=== PATIENT | male | born 1955 | race Caucasian/White ===

== ENCOUNTER 2022-06-14 12:26 | Inpatient (IN) | payer OTHER, MEDICAID ==
[~2022-06-14] VITALS: Ht 182.9 cm; Wt 98.4 kg
[~2022-06-14 12:26] MED LIST: ASPI-1393 PO; LOSA25TA3 PO; SIMV-343 PO
[2022-06-14 12:37] VITALS: BP_SYST 139
[2022-06-14 14:05] LABS: BASOPHILS # (AUTO) 0.1 K/uL (0.0-0.2); BASOPHILS % (AUTO) 0.4 % (0.0-2.0); HEMATOCRIT 37.3 % (36-54); HEMOGLOBIN 12.8 g/dL (14.0-18.0); LYMPHOCYTES # (AUTO) 0.7 K/uL (1.0-5.5); LYMPHOCYTES % (AUTO) 4.3 % (20.5-51.5); MEAN CORPUSCULAR HEMOGLOBIN 33 pg (27-31); MEAN CORPUSCULAR HGB CONC 34 % (32-36); MEAN CORPUSCULAR VOLUME 96 fL (79.0-98.0); MONOCYTES # (AUTO) 0.6 K/uL (0.0-1.0); MONOCYTES % (AUTO) 4.2 % (1.7-9.3); NEUTROPHILS # (AUTO) 13.9 K/uL (1.8-7.7); NEUTROPHILS % (AUTO) 91.1 % (40.0-70.0); RED BLOOD CELL COUNT(AUTO) 3.91 MIL/uL (4.2-6.2); RED CELL DISTRIBUTION WIDTH 15.4 % (9.0-15.0); WHITE BLOOD COUNT (AUTO) 15.3 K/uL (4.8-10.8)
[2022-06-14 14:13] LABS: CALCIUM 8.4 mg/dL (8.4-11.0); CREATININE 1.12 mg/dL (0.55-1.30)
[2022-06-14 14:18] LABS: ALBUMIN 2.6 g/dL (3.4-4.8); PLATELET COUNT (AUTO) 80 K/uL (130-430); TOTAL BILIRUBIN 3.6 mg/dL (0.0-1.0)
[2022-06-14] MEDS ORDERED: METF-379 PO (15:13)
[2022-06-14] MEDS ORDERED: NACL 0.9% 1,000 ML IV ONE ×2 (15:15)
[2022-06-14 16:10] LABS: CLARITY/URINE CLEAR (CLEAR)
[2022-06-14 16:11] LABS: COLOR,URINE ORANGE (YELLOW)
[2022-06-14 16:16] LABS: BACTERIA,URINE None Seen /HPF (None Seen); WBC,URINE 0-3 /HPF (0-3)
[2022-06-14 16:17] LABS: MUCUS,URINE 2+ /LPF (None Seen)
[2022-06-14] MEDS ORDERED: PIPERACILLIN/TAZO 3.375 GM in NS 50 ML IV ONE (17:45)
[2022-06-14] MEDS ORDERED: VANCOMYCIN HCL 1,000 MG in NS 250 ML IV ONE (17:45)
[2022-06-14] MEDS ORDERED: D5/0.45 NS 1,000 ML IV ONE (18:15)
[2022-06-14] MEDS ORDERED: PIPERACILLIN/TAZOBACTAM 3.375 GM/VIAL (ZOSYN) IV ONE (20:30)
[2022-06-14 21:31] VITALS: BP_SYST 124
[2022-06-14] MEDS ORDERED: VANCOMYCIN HCL 1000 MG/VIAL IV ONE (23:25)
[2022-06-15] VITALS (9 sets, daily range): BP systolic 102–135
[2022-06-15] MEDS ORDERED: LOSARTAN POTASSIUM 25 MG TABLET PO ONE (11:00)
[2022-06-15] MEDS ORDERED: metFORMIN HCL 500 MG TABLET PO ONE (11:00)
[2022-06-15] MEDS ORDERED: NALOXONE HCL 0.4 MG/ML AMP (NARCAN) IVP PRN ×2 (11:00)
[2022-06-15] MEDS ORDERED: LORazepam 2 MG/ML VIAL IVP PRN (11:00)
[2022-06-15] MEDS ORDERED: INSULIN REGULAR, HUMAN 100 UNITS/ML, 3 ML VIAL (humuLIN R) SUBCUT PRN (11:00)
[2022-06-15] MEDS ORDERED: ACETAMINOPHEN 325 MG TABLET PO PRN (11:00)
[2022-06-15] MEDS ORDERED: ASPIRIN 81 MG TABLET(ECOTRIN) PO ONE (11:00)
[2022-06-15] MEDS ORDERED: HYDROcodone/ACETAMIN 5-325 MG TAB (NORCO/ VICODIN) PO PRN (11:00)
[2022-06-15] MEDS ORDERED: ONDANSETRON HCL 4 MG/2 ML VIAL IVP PRN (11:00)
[2022-06-15] MEDS ORDERED: HYDROcodone/ACETAMIN 10-325 MG TAB PO PRN (11:00)
[2022-06-15] MEDS: PIPERACILLIN/TAZO 3.375/DEX-IS 50 ML IV SCH ×2 (12:24→17:54)
[2022-06-15] MEDS: NORMAL SALINE 5 ML DISP.SYRIN IVF SCH ×4 (16:30→22:28)
[2022-06-15] MEDS: SIMVASTATIN 20 MG TABLET PO SCH (17:54)
[2022-06-15] MEDS: ACETAMINOPHEN 325 MG TABLET PO PRN (22:28)
[2022-06-16] VITALS (9 sets, daily range): BP systolic 98–131
[2022-06-16] MEDS: PIPERACILLIN/TAZO 3.375/DEX-IS 50 ML IV SCH ×5 (00:43→23:51)
[2022-06-16] MEDS: NORMAL SALINE 5 ML DISP.SYRIN IVF SCH ×6 (06:00→22:38)
[2022-06-16] MEDS: metFORMIN HCL 500 MG TABLET PO SCH (08:32)
[2022-06-16] MEDS: ASPIRIN 81 MG TABLET(ECOTRIN) PO SCH (08:32)
[2022-06-16] MEDS: LOSARTAN POTASSIUM 25 MG TABLET PO SCH (08:32)
[2022-06-16] MEDS: SIMVASTATIN 20 MG TABLET PO SCH (17:53)
[2022-06-16] MEDS ORDERED: LOPERAMIDE HCL 2 MG CAPSULE PO PRN (23:45)
[2022-06-16] MEDS: ACETAMINOPHEN 325 MG TABLET PO PRN (23:51)
[2022-06-17] VITALS (10 sets, daily range): BP systolic 115–162
[2022-06-17] MEDS: NORMAL SALINE 5 ML DISP.SYRIN IVF SCH ×6 (06:00→22:16)
[2022-06-17 06:28] LABS: BASOPHILS % (AUTO) 0.9 % (0.0-2.0); EOSINOPHILS # (AUTO) 0.5 K/uL (0.0-0.4); EOSINOPHILS % (AUTO) 9.4 % (0.0-4.0); HEMATOCRIT 32.1 % (36-54); HEMOGLOBIN 11.1 g/dL (14.0-18.0); LYMPHOCYTES # (AUTO) 1.8 K/uL (1.0-5.5); LYMPHOCYTES % (AUTO) 33.4 % (20.5-51.5); MEAN CORPUSCULAR HEMOGLOBIN 33 pg (27-31); MEAN CORPUSCULAR HGB CONC 35 % (32-36); MEAN CORPUSCULAR VOLUME 95 fL (79.0-98.0); MONOCYTES # (AUTO) 0.3 K/uL (0.0-1.0); MONOCYTES % (AUTO) 5.9 % (1.7-9.3); NEUTROPHILS # (AUTO) 2.7 K/uL (1.8-7.7); NEUTROPHILS % (AUTO) 50.4 % (40.0-70.0); PLATELET COUNT (AUTO) 73 K/uL (130-430); RED BLOOD CELL COUNT(AUTO) 3.39 MIL/uL (4.2-6.2); RED CELL DISTRIBUTION WIDTH 15.2 % (9.0-15.0); WHITE BLOOD COUNT (AUTO) 5.4 K/uL (4.8-10.8)
[2022-06-17] MEDS: PIPERACILLIN/TAZO 3.375/DEX-IS 50 ML IV SCH (06:42)
[2022-06-17 07:01] LABS: ALBUMIN 2.1 g/dL (3.4-4.8); C-REACTIVE PROTEIN QUANT 5.2 mg/dL (0-0.5); CREATININE 0.81 mg/dL (0.55-1.30); TOTAL BILIRUBIN 1.5 mg/dL (0.0-1.0)
[2022-06-17] MEDS: metFORMIN HCL 500 MG TABLET PO SCH (09:18)
[2022-06-17] MEDS: ASPIRIN 81 MG TABLET(ECOTRIN) PO SCH (09:19)
[2022-06-17] MEDS: LOSARTAN POTASSIUM 25 MG TABLET PO SCH (09:20)
[2022-06-17] MEDS: ACETAMINOPHEN 325 MG TABLET PO PRN (09:20)
[2022-06-17 10:47] LABS: ERYTHROCYTE SEDIMENTATION RATE 10 MM/HR (0-15)
[2022-06-17] MEDS: cefTRIAXone 1 GM in D5W 50 ML IV SCH (13:48)
[2022-06-17] MEDS: SIMVASTATIN 20 MG TABLET PO SCH (17:49)
[2022-06-18 00:45] VITALS: BP_SYST 107
[2022-06-18] MEDS: NORMAL SALINE 5 ML DISP.SYRIN IVF SCH ×4 (06:00→13:57)
[2022-06-18 06:42] LABS: BASOPHILS # (AUTO) 0.1 K/uL (0.0-0.2); BASOPHILS % (AUTO) 1.1 % (0.0-2.0); EOSINOPHILS # (AUTO) 0.5 K/uL (0.0-0.4); EOSINOPHILS % (AUTO) 11.2 % (0.0-4.0); HEMOGLOBIN 11.4 g/dL (14.0-18.0); LYMPHOCYTES # (AUTO) 1.6 K/uL (1.0-5.5); LYMPHOCYTES % (AUTO) 32.7 % (20.5-51.5); MEAN CORPUSCULAR HEMOGLOBIN 33 pg (27-31); MEAN CORPUSCULAR HGB CONC 35 % (32-36); MEAN CORPUSCULAR VOLUME 95 fL (79.0-98.0); MONOCYTES # (AUTO) 0.3 K/uL (0.0-1.0); NEUTROPHILS # (AUTO) 2.3 K/uL (1.8-7.7); PLATELET COUNT (AUTO) 80 K/uL (130-430); RED BLOOD CELL COUNT(AUTO) 3.49 MIL/uL (4.2-6.2); RED CELL DISTRIBUTION WIDTH 15.1 % (9.0-15.0); WHITE BLOOD COUNT (AUTO) 4.8 K/uL (4.8-10.8)
[2022-06-18 06:59] LABS: C-REACTIVE PROTEIN QUANT 3.5 mg/dL (0-0.5); CALCIUM 7.9 mg/dL (8.4-11.0); CREATININE 0.79 mg/dL (0.55-1.30)
[2022-06-18 08:00] VITALS: BP_SYST 106
[2022-06-18] MEDS: metFORMIN HCL 500 MG TABLET PO SCH ×2 (08:57→09:00)
[2022-06-18] MEDS: LOSARTAN POTASSIUM 25 MG TABLET PO SCH (08:58)
[2022-06-18] MEDS: ASPIRIN 81 MG TABLET(ECOTRIN) PO SCH (08:58)
[2022-06-18 10:33] LABS: ERYTHROCYTE SEDIMENTATION RATE 16 MM/HR (0-15)
[2022-06-18] MEDS: ACETAMINOPHEN 325 MG TABLET PO PRN (10:51)
[2022-06-18 12:00] VITALS: BP_SYST 112
[2022-06-18] MEDS: cefTRIAXone 1 GM in D5W 50 ML IV SCH (12:50)
[2022-06-18 16:00] VITALS: BP_SYST 110
[2022-06-18] MEDS: SIMVASTATIN 20 MG TABLET PO SCH (17:31)
[2022-06-18 20:00] VITALS: BP_SYST 123
[2022-06-19 00:18] VITALS: BP_SYST 111
[2022-06-19] MEDS: NORMAL SALINE 5 ML DISP.SYRIN IVF SCH ×6 (04:25→13:26)
[2022-06-19 06:54] LABS: BASOPHILS # (AUTO) 0.1 K/uL (0.0-0.2); BASOPHILS % (AUTO) 1.1 % (0.0-2.0); EOSINOPHILS # (AUTO) 0.5 K/uL (0.0-0.4); EOSINOPHILS % (AUTO) 11.8 % (0.0-4.0); HEMATOCRIT 31.8 % (36-54); LYMPHOCYTES # (AUTO) 1.4 K/uL (1.0-5.5); LYMPHOCYTES % (AUTO) 31.2 % (20.5-51.5); MEAN CORPUSCULAR HEMOGLOBIN 33 pg (27-31); MEAN CORPUSCULAR HGB CONC 35 % (32-36); MEAN CORPUSCULAR VOLUME 95 fL (79.0-98.0); MONOCYTES # (AUTO) 0.3 K/uL (0.0-1.0); MONOCYTES % (AUTO) 7.6 % (1.7-9.3); NEUTROPHILS # (AUTO) 2.2 K/uL (1.8-7.7); NEUTROPHILS % (AUTO) 48.3 % (40.0-70.0); PLATELET COUNT (AUTO) 74 K/uL (130-430); RED BLOOD CELL COUNT(AUTO) 3.33 MIL/uL (4.2-6.2); WHITE BLOOD COUNT (AUTO) 4.5 K/uL (4.8-10.8)
[2022-06-19 07:51] LABS: ERYTHROCYTE SEDIMENTATION RATE 11 MM/HR (0-15)
[2022-06-19 08:49] LABS: C-REACTIVE PROTEIN QUANT 2.2 mg/dL (0-0.5); CALCIUM 7.9 mg/dL (8.4-11.0); CREATININE 0.7 mg/dL (0.55-1.30); TOTAL BILIRUBIN 0.9 mg/dL (0.0-1.0)
[2022-06-19] MEDS: ASPIRIN 81 MG TABLET(ECOTRIN) PO SCH (09:00)
[2022-06-19] MEDS: metFORMIN HCL 500 MG TABLET PO SCH (09:33)
[2022-06-19] MEDS: LOSARTAN POTASSIUM 25 MG TABLET PO SCH (09:33)
[2022-06-19 09:58] LABS: INR 1.1 (0.80-1.20); PROTHROMBIN TIME 11.7 SECS (9.5-12.5)
[2022-06-19 11:28] VITALS: BP_SYST 109
[2022-06-19] MEDS: cefTRIAXone 1 GM in D5W 50 ML IV SCH (13:25)
[2022-06-19 15:20] VITALS: BP_SYST 114
[2022-06-20 08:06] LABS: AFP, TUMOR MARKER 2.1 ng/mL (0.0-8.4); FERRITIN 107 ng/mL (30-400); HEPATITIS A AB, IgM Negative (Negative); HEPATITIS B CORE AB, IgM Negative (Negative); HEPATITIS B SURFACE AG Negative (Negative)
[2022-06-20 09:07] LABS: ANTI NUCLEAR AB WITH REFLEX Negative (Negative)
[2022-06-23 09:06] LABS: ANTI-SMOOTH MUSCLE AB 6 Units (0-19)
[2022-06-25 12:40] LABS: HEPATITIS C VIRUS AB Negative <0.8 s/co (0.0-0.7)
[2022-06-26] MEDS ORDERED: HYDR-3917 PO (10:23)
== END 2022-06-19 17:00 | disposition home or self-care (01) | DRG 871 ==
LOC: SED 12:26 → STU 18:48 → SMU 06-18 11:59
PROVIDERS: ADMIT Preventive Medicine Preventive Medicine/Occupational Environmental Medicine; ATTEND Preventive Medicine Preventive Medicine/Occupational Environmental Medicine
PROC: 4A00X4Z Measurement of Central Nervous Electrical Activity, External Approach (ICD-10-PCS; principal; 2022-06-14)
DX: A41.9 Sepsis, unspecified organism (principal); E43 Unspecified severe protein-calorie malnutrition; E87.20 Acidosis, unspecified; K76.6 Portal hypertension; M48.56XA Collapsed vertebra, not elsewhere classified, lumbar region, initial encounter for fracture; K80.12 Calculus of gallbladder with acute and chronic cholecystitis without obstruction; R18.8 Other ascites; E78.5 Hyperlipidemia, unspecified; E83.52 Hypercalcemia; E83.51 Hypocalcemia; G89.29 Other chronic pain; E88.09 Other disorders of plasma-protein metabolism, not elsewhere classified; E11.65 Type 2 diabetes mellitus with hyperglycemia; D72.819 Decreased white blood cell count, unspecified; I10 Essential (primary) hypertension; Z20.822 Contact with and (suspected) exposure to COVID-19; D69.6 Thrombocytopenia, unspecified; K74.60 Unspecified cirrhosis of liver; D64.9 Anemia, unspecified; Z86.73 Personal history of transient ischemic attack (TIA), and cerebral infarction without residual deficits; Z68.29 Body mass index [BMI] 29.0-29.9, adult
CPT/HCPCS: 36415; 70551; 71045; 71260-TC; 74181; 76376; 76700-TC; 78226; 80048; 80053; 80074; 81000; 82105; 82728; 83516; 83605; 85025; 85610-TC; 85651-TC; 85730-TC; 86038; 86140; 86803; 87040; 93005; 93306; 93880; 95816; 96361; 96365; 97112-GP; 97116-GP; 97530-GP; 99291; A9537; G0378; J0696; J1815; J2060; J2543; J3370; J7060; Q9967

== ENCOUNTER 2022-10-28 15:18 | Emergency (ER) | payer OTHER, MEDICAID ==
[~2022-10-28 15:18] MED LIST changes: +HYDR-3917 PO; +METF-379 PO
--- NOTE | 2022-10-28 16:00 | NUR ---
PT TRIAGED. PT STABLE. PLACED PT IN ER WAITING AREA. WILL CONTINUE TO MONITOR
[2022-10-28 16:06] VITALS: BP_SYST 138
--- NOTE | 2022-10-28 17:08 | NUR ---
Placed in room 07 . [address] on court monitor, blood pressure machine and pulse oximeter. To gown for exam. Side rails up. Report given to MILAGROS GUTIÉRREZ AND MILAGROS PINEDA.
--- NOTE | 2022-10-28 17:10 | NUR ---
PATIENT BIB SELF C/O HEMOATOMA TO ANTERIOR RIGHT FOOT DISTAL TO GREAT TOE. STATES BEGAN 3 WEEKS AGO & HAS DOUBLED IN SIZE. DENIES TRAUMA TO AREA. DENIES PAIN. MED HX HTN, CIRRHOSIS, HEART VALVE ISSUES (ACCORDING TO DAUGHTER BY PHONE). SX HX OF CHOLECYSTITIS. NKA. VSS.
--- NOTE | 2022-10-28 17:11 | NUR ---
DR BOLDEN AT BEDSIDE
--- NOTE | 2022-10-28 17:45 | NUR ---
PATIENT TO RADIOLOGY
[2022-10-28] MEDS ORDERED: MUPI15CR12 TP (19:12)
--- NOTE | 2022-10-28 19:21 | NUR ---
ABRASION ON DORSAL SIDE OF RIGHT FOOT IRRIGATED WITH STERILE SALINE. ABRASION COVERED WITH NON ADHESIVE GAUZE AND SECURED WITH GAUZE ROLL.
[2022-10-28 19:32] VITALS: BP_SYST 129
--- NOTE | 2022-10-28 19:32 | NUR ---
Patient given written and verbal discharge instructions and verbalizes understanding. ER MD BOLDEN discussed with patient the results and treatment provided. Patient in stable condition. ID arm band removed. Rx of mupirocin given. Patient educated on pain management and to follow up with PMD. Pain Scale 0/10. Opportunity for questions provided and answered. Medication side effect fact sheet provided. Daughter Alejandra on phone during discharge, voiding concern about Patient possible diabetes. approved accucheck. Blood sugar level 73. Nurse explained best course of action is to request Hemoglobin A1C from PCP.
== END 2022-10-28 19:32 | disposition home or self-care (01) ==
LOC: SED 15:18
DX: S90.811A Abrasion, right foot, initial encounter (principal); I10 Essential (primary) hypertension; Z79.899 Other long term (current) drug therapy; X58.XXXA Exposure to other specified factors, initial encounter; Y93.89 Activity, other specified; Y92.89 Other specified places as the place of occurrence of the external cause; Y99.8 Other external cause status
CPT/HCPCS: 99283